=== PATIENT | female | born 1945 | race Two or more races ===

== ENCOUNTER 2016-10-23 13:17 | Emergency (ER) | payer MEDICARE, OTHER ==
[~2016-10-23] VITALS: Ht 152.4 cm; Wt 96.8 kg
[~2016-10-23 13:17] MED LIST: AMLO10TA5 PO; BENA20TA72 PO; CEVI30CA4 PO; COR625 PO; EVI60 PO; FOL1 PO; HYDR1TAB91 PO; K10 PO; L GA1CAP PO; LEVO112T23 PO; LOV100 SUBQ; METHOTREX PO; OMPR20CCR PO; PEG15DRO5 OP; RESTASIS; [UNRECOGNIZED DRUG - CODE] PO
[2016-10-23 13:21] VITALS: BP 110/66; PULSE 87; RESP 16; O2SAT 97
--- NOTE | 2016-10-23 13:32 | ED.REPORT ---
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 Associated symptoms include the inability to bear weight on her leg, left leg pain and a fever of 99.6. She denies chest pain, shortness of breath, or any recent falls. Per the patient's , the patient has recently been on antibiotics. The patient is not currently taking any anticoagulants. Nursing Notes Stated Complaint: POSSIBLE BLOOD CLOT Chief Complaint: Extremity Trauma Nursing Notes Reviewed: Yes Allergies: Coded Allergies: No Known Drug Allergies (Verified Allergy, Unknown, 10/23/16) TAPE (Verified Adverse Reaction, Intermediate, ihtcy , rash, 10/23/16) Scheduled AmLODIPine-Expunged Drug, Do Not Renew! (AmLODIPine-Expunged Drug, Do Not Renew! ) 10 Mg Tablet 10 MG PO DAILY Benazepril-Expunged Drug, Do Not Renew! (Lotensin-Expunged Drug, Do Not Renew!) 20 Mg Tablet 20 MG PO BID Carvedilol-Expunged Drug, Do Not Renew! (Carvedilol-Expunged Drug, Do Not Renew! ) 6.25 Mg Tablet 6.25 MG PO BID For OUTPATIENT can convert to long acting Coreg CR 20 mg Daily Cevimeline Hcl (Cevimeline Hcl) 30 Mg Capsule 30 MG PO TID Cevimeline Hcl (Cevimeline Hcl) 30 Mg Capsule 30 MG PO TID Enoxaparin (Lovenox) 100 Mg/Ml Syringe 100 MG SUBQ Q12 Folic Acid-Expunged Drug, Do Not Renew! (Folic Acid-Expunged Drug, Do Not Renew! ) 1 Mg Tablet 1 MG PO DAILY Levothyroxine-Expunged Drug, Do Not Renew! (Levoxyl-Expunged Drug, Do Not Renew! ) 112 Mcg Tablet 112 MCG PO DAILY MethoTREXate-Expunged Drug, Do Not Renew! (RheumaTREX-Expunged Drug, Do Not Renew!) 2.5 Mg Tablet 2.5 MG PO UD Omeprazole-Expunged Drug, Do Not Renew! (Omeprazole-Expunged Drug, Do Not Renew! ) 20 Mg Capsule. 20 MG PO DAILYAC Potassium Chl-Expunged Drug, Do Not Renew! (K-OBG-Kjcclvvr Drug, Do Not Renew!) 10 Meq Tabsr 10 MEQ PO BID TAKE WITH FOOD PredniSONE-Expunged Drug, Do Not Renew! (PredniSONE-Expunged Drug, Do Not Renew! ) 5 Mg/5 Ml Solution 5 MG PO DAILY Raloxifene-Expunged Drug, Do Not Renew! (Evista-Expunged Drug, Do Not Renew!) 60 Mg Tablet 60 MG PO DAILY Scheduled PRN Hydrocod/APAP-Expunged, Do Not Renew! (Hydrocod/APAP-Expunged, Do Not Renew!) 1 Each Tablet 1 TAB PO Q12 PRN PRN For mild-moderate pain. L Gasseri/B Bifidum/B Longum ([employer] Capsule) 1 Each Capsule 100 MG PO HS PRN PRN Miscellaneous Medications ([restasis 0.05]) Peg 400/Hypromellose/Glycerin (Artificial Tears Drops) 15 Ml Drops 15 ML OP General Time Seen by MD: 13:31 Chief Complaint Leg injury left Hx Obtained From: Patient, Spouse, Daughter Arrived By: Walk-in Onset Occurred: Yesterday Location: : Leg left Recent Healthcare: No recent hospitalization, Recent doctor visit Similar Sx Previous: No Past Medical History Past Medical History uterine cancer thyroid disease hypertension borderline diabetes intestinal fistula arthritis Past Surgical History PICC LINE abdominal fistula surgery right total knee replacement Smoking History Smoker Current Status UNK Social History Alcohol Use: "Social" Drug Use: Denies drug use Other Social History: Good social support, Ambulatory Status Independent Review of Systems Constitutional: Reports: Fever (99.6) Musculoskeletal: Reports: Extremity pain (left leg), Extremity swelling (left leg) Complete sys rev & neg: except as marked. Respiratory: Denies: Non-productive cough, Shortness of breath Cardiovascular: Denies: Chest pain Physical Exam Initial Vital Signs Vital Signs (First) Date Time Temp Pulse Resp B/P Pulse Ox O2 Delivery O2 Flow Rate FiO2 10/23/16 13:21 36.6 87 16 110/66 97 Room Air Initial VS: Reviewed Lower Extremity / Pelvis / MS: Atraumatic, Inspection NL, Full range of motion , No swelling Ankle / Foot: Atraumatic, Inspection NL, Full range of motion General/Constitutional: Awake, Alert, No acute distress Respiratory / Chest: Atraumatic, Breath sounds NL, Breath sounds = bilat, No respiratory distress Cardiovascular: Heart rate NL, Regular rhythm, Heart sounds NL Skin: Atraumatic, Color NL, No rash, Warm, Dry Neurologic: Oriented X3, Speech NL, No motor deficits, No sensory deficits Head / Eyes: Atraumatic, Normocephalic, PERRL, EOMI ENT: Atraumatic, Airway patent, Mucous membranes moist Neck: Atraumatic, Supple, Full range of motion Abdomen: Atraumatic, Soft, Non-tender Upper Extremity / MS: Atraumatic, Full range of motion Psychiatric: Affect NL, Mood NL Interpretation & Diagnostics Interpretation & Diagnostics: Ultrasound: IMPRESSION: No DVT found. Dictated by: Nirmal Roman M.D. on 10/23/2016 at 14:58 Approved by: Nirmal Roman M.D. on 10/23/2016 at 14:58 Lab Results Interpretation Result Diagram: 10/23/16 1353 10/23/16 1353 Test 10/23/16 13:53 White Blood Count 8.6th/mm3 (3.8-10.1) Red Blood Count 3.89mil/mm3 (3.90-5.20) Hemoglobin 8.6g/dL (12.0-15.6) Hematocrit 27.5% (35.0-46.0) Mean Corpuscular Volume 70.7fL (81-100) Mean Corpuscular Hemoglobin 22.1pg (27.0-35.0) Mean Corpuscular Hemoglobin Concent 31.3% (32.0-37.0) Red Cell Distribution Width 23.6% (12.3-15.4) Platelet Count 461bil/L (150-400) Neutrophils (%) (Auto) 45.6% (40-74) Lymphocytes (%) (Auto) 35.4% (14-46) Monocytes (%) (Auto) 14.6% (4-12) Eosinophils (%) (Auto) 3.6% (0-5) Basophils (%) (Auto) 0.2% (0-3) Prothrombin Time 10.8sec (8.1-12.5) Prothromb Time International Ratio 1.01ratio Sodium Level 129mEq/L (134-144) Potassium Level 4.5mEq/L (3.5-5.2) Chloride Level 96mEq/L (97-108) Carbon Dioxide Level 19mmol/L (18-29) Blood Urea Nitrogen 16mg/dL (8-27) Creatinine 0.51mg/dL (0.57-1.00) Estimat Glomerular Filtration Rate 169mL/min (>59) Glucose Level 129mg/dL (60-99) Calcium Level 9.8mg/dL (8.5-10.1) Total Bilirubin 0.2mg/dL (0.0-1.2) Aspartate Amino Transf (AST/SGOT) 11U/L (0-50) Alanine Aminotransferase (ALT/SGPT) 16U/L (0-32) Alkaline Phosphatase 73U/L (25-165) Total Protein 6.2g/dL (6.4-8.4) Albumin 2.7g/dL (3.4-5.0) Re-Eval/Medical Decision Med Decision/Clinical Course 71-year-old female history of ovarian cancer status post resection and history of PICC line related blood clot 6 months ago off anticoagulation after 3 months presenting with left lower extremity pain. Sent in for rule out blood clot. She is tender over her left lateral ankle. Her ultrasound shows no evidence of DVT. Her labs are stable. Patient requests to go home. Possible tendinitis versus arthritis versus strain versus sprain. Recommend rice and Tylenol. Return precautions given. Source of Hx: Old records, Family Re-Evaluation/Progress : Time of Eval: 14:53 Re-Evaluation/Progress Note: Discussed CT results that were negative for a blood clot. Discussed plan for discharge. The patient understands and agrees to the plan for discharge. All questions were addressed. Counseled Regarding: Diagnosis, Lab results, Need for follow-up, When/why to return to ED Discharge & Departure Impression: Primary Impression: Leg pain Laterality: left Qualified Code: M79.605 - Pain in left leg Disposition: Home Discharge Condition All VS Reviewed: Yes Condition: Stable Additional Instructions: Take Tylenol as needed for your pain..Your ultrasound results were normal and there was no sign of a blood clot. Follow up with your primary care physician next week. Please return to the emergency department if you develop any new or worsening symptoms including weakness, tingling, or numbness in your leg, or increasing pain. Referrals: Miguelito Bridges MD (PCP) Aylin Attestation Portions of this note were transcribed by Nancy Wharton. I, Dr. Xiong personally performed the history, physical exam and medical decision-making; I reviewed and confirmed the accuracy of the information in the transcribed note. Signed by: Aylin Zamudio, 10/23/16 and [id number]. copies to: Miguelito Bridges MD, Ben M MD Oct 23, 2016 13:32 Sarah Wharton Oct 23, 2016 13:51
[2016-10-23 14:01] LABS: BASOPHILS % (AUTO) 0.2 % (0-3); EOSINOPHILS % (AUTO) 3.6 % (0-5); MONOCYTES % (AUTO) 14.6 % (4-12); Mean Corpuscular Hemoglobin 22.1 pg (27.0-35.0); Mean Corpuscular Volume 70.7 fL (81-100); NEUTROPHILS % (AUTO) 45.6 % (40-74); Platelet Count 461 bil/L (150-400)
[2016-10-23 14:19] LABS: INR 1.01 ratio
--- NOTE | 2016-10-23 14:59 | DRSVH ---
PROCEDURE: US VEINOUS LEG DUPLEX UNILATERAL, LEFT INDICATIONS: LLE swelling TECHNIQUE: Real-time imaging, as well as color and pulse Doppler interrogation, were performed of the lower extr emity deep veins from the inguinal ligament to the popliteal fossa. COMPARISON: None. FINDINGS: The deep veins are normally compressible, and free of intraluminal thrombus. Color and pu lse Doppler demonstrate normal phasic intraluminal flow. There is normal augmentation response to di stal compression maneuver. IMPRESSION: No DVT found. Dictated by: Nirmal Roman M.D. on 10/23/2016 at 14:58 Approved by: Nirmal Roman M.D. on 10/23/2016 at 14:58
[2016-10-23 15:05] VITALS: BP 125/75; PULSE 90; RESP 20; O2SAT 100
== END 2016-10-23 15:06 | disposition home or self-care (01) ==
LOC: SED 13:17
DX: M79.605 Pain in left leg (principal); I10 Essential (primary) hypertension; E11.9 Type 2 diabetes mellitus without complications; Z85.42 Personal history of malignant neoplasm of other parts of uterus; Z79.899 Other long term (current) drug therapy